=== PATIENT | female | born 1975 | race Asian ===

== ENCOUNTER 2021-05-14 19:45 | Inpatient (IN) ==
[2021-05-14] MEDS ORDERED: SODIUM CHLORIDE 0.9% 1000ML 1,000 ML IV STA (20:11)
--- NOTE | 2021-05-14 20:14 | Emergency Department Note ---
Impression & Plan Abdominal pain, left lower quadrant, Adnexal mass ED Provider Note NAME: ASHA SCHMITZ AGE: 46 SEX: F : 1975 ARRIVES VIA: Walk-In INFORMANT: Patient, ED PROVIDER(S): Srini Coyne DO CHIEF COMPLAINT: Abdominal pain HPI: The patient is a 46-year-old female who presented to the emergency department for an evaluation of lower abdominal pain. The patient started having abdominal pain on the left lower quadrant yesterday. The pain continued into today. The patient was seen at [facility] and was sent to the emergency department for further evaluation. The patient states the pain has been constant. She states the pain is mildly improved compared to its onset. The patient states the pain is worsened with ambulation as well as palpation over the lower abdomen. The patient denies having hematuria. She denies having any dysuria or frequency. The patient has never had a colonoscopy and never had a history of diverticulitis. She does not have a history of kidney stone. She denies having any chest pain or difficulty breathing. She states the pain is moderate at this time but does not want any pain medication. ROS: See above HPI for pertinent positives & negatives. A total of 10 systems reviewed and were otherwise negative. PAST MEDICAL HISTORY: See Below PAST SURGICAL HISTORY: See Below FAMILY HISTORY: See Below SOCIAL HISTORY: See Below HOME MEDICATIONS: See Below ALLERGIES: See Below VITALS: See Below PHYSICAL EXAMINATION: GENERAL: The patient is awake and alert. The patient is somewhat anxious appearing. EYES: The conjunctivae are clear. The pupils are round and reactive. EARS, NOSE, MOUTH AND THROAT: The nose is without any evidence of any deformity. NECK: The neck is nontender and supple. RESPIRATORY: Normal respiratory effort is noted there is no evidence of wheezing rhonchi or rales CARDIOVASCULAR: Regular rate and rhythm noted there no murmurs rubs or gallops normal S1 normal S2. GASTROINTESTINAL: Abdomen is mildly distended. There is left lower quadrant tenderness to palpation which is moderate. BACK: No midline tenderness or or step-off noted range of motion in flexion extension as well as rotation no signs of muscle spasm noted MUSCULOSKELETAL/EXTREMITIES: There is no evidence of gross deformity full range of motion is noted in the hips and shoulders. SKIN: There is no obvious evidence of any rash. There are no petechiae, pallor or cyanosis noted. NEUROLOGIC: Patient is awake alert and oriented x3. MEDICAL DECISION MAKING: Patient is a 46-year-old female who developed left-sided abdominal pain. She went to [facility] and was referred to the emergency department for further evaluation. I discussed the patient's laboratory and radiographic studies with her. CT the abdomen and pelvis was obtained. The patient was found to have an elevated white blood cell count. CT the abdomen and pelvis revealed a left- sided adnexal mass of unclear etiology. The radiologist recommended ultrasound for further evaluation. The patient was signed out to Dr. Giordano at change of shift. Please see his note for ultrasound report and continuation of care. Triage Nursing notes reviewed. Prior medical records reviewed Vital Signs: reviewed and remarkable for no significant abnormalities Differential diagnosis: Etiologies such as appendicitis, diverticulitis, obstruction, inflammatory bowel disease, renal colic, PUD, biliary pathology, pancreatitis, mesenteric ischemia, aortic pathology, infections, genitourinary, UTI, perforated viscus, as well as others were entertained. ER treatment provided: See below Diagnostics interpreted by me: ECG: none Cardiac Monitoring: An order was placed for continuous cardiac monitoring. The monitor shows a rate of 99 bpm with sinus rhythm. Laboratory studies: As stated above and show below. Imaging studies: See below Consultation(s): none Past Med/Surg History Medical History (Updated 05/14/21 @ 22:20 by Srini Coyne DO) Antepartum varicose veins of legs Surgical History Previous section Social History Smoking Status: Never smoker Second Hand Exposure: No; Do You Dip or Chew Tobacco: No; Hx Alcohol Use: No Hx Substance Use: No Preferred Language: Mandarin Belarusian Communication Ability: Effective [employer] Required: Yes Beliefs That Will Affect Care: None marital status: Current Living Situation: Family Other Information That Helps Us Care for You: No Feels Safe at Home: Yes Safety Concerns: Feels Safe At This Time Assistive Devices: None Allergies Allergies Allergy/AdvReac Type Severity Reaction Status Date / Time No Known Allergies Allergy Unverified 05/14/21 21:27 Home Meds Home Medications Medication Instructions Recorded Confirmed amoxicillin 200 mg dispersible 0 mg PO BID 05/14/21 05/14/21 tablet Results & Data (ED) Vital Signs Vital Signs - 24 hr 05/14/21 23:46 05/15/21 01:37 05/15/21 03:07 Pulse Rate 98 H Pulse Rate [Bilateral Finger] 101 H 103 H Pulse Rate from SpO2 Sensor 98 H Respiratory Rate 18 18 20 Blood Pressure Blood Pressure [Right Arm] 111/74 113/79 Blood Pressure Mean Blood Pressure Mean [Right Arm] 86 90 Pulse Oximetry 99 98 97 Oxygen Delivery Method Room Air 05/15/21 03:10 05/15/21 03:20 05/15/21 03:30 Pulse Rate 98 H 98 H 93 H Pulse Rate [Bilateral Finger] 100 H Pulse Rate from SpO2 Sensor 99 H 97 H 95 H Respiratory Rate 22 22 16 Blood Pressure 102/73 Blood Pressure [Right Arm] 102/73 Blood Pressure Mean 82 Blood Pressure Mean [Right Arm] 82 Pulse Oximetry 98 98 97 Oxygen Delivery Method Room Air 05/15/21 03:40 05/15/21 03:50 05/15/21 04:00 Pulse Rate 106 H 103 H 97 H Pulse Rate [Bilateral Finger] Pulse Rate from SpO2 Sensor 105 H 103 H 97 H Respiratory Rate 17 20 19 Blood Pressure 101/65 Blood Pressure [Right Arm] Blood Pressure Mean 77 Blood Pressure Mean [Right Arm] Pulse Oximetry 99 97 98 Oxygen Delivery Method 05/15/21 04:10 05/15/21 04:20 05/15/21 04:30 Pulse Rate 94 H 95 H 100 H Pulse Rate [Bilateral Finger] Pulse Rate from SpO2 Sensor 93 H 95 H 99 H Respiratory Rate 21 23 24 Blood Pressure 97/55 L Blood Pressure [Right Arm] Blood Pressure Mean 69 Blood Pressure Mean [Right Arm] Pulse Oximetry 98 97 97 Oxygen Delivery Method 05/15/21 04:40 05/15/21 04:50 05/15/21 05:00 Pulse Rate 96 H 96 H 99 H Pulse Rate [Bilateral Finger] Pulse Rate from SpO2 Sensor 96 H 96 H 101 H Respiratory Rate 22 21 24 Blood Pressure 99/59 L Blood Pressure [Right Arm] Blood Pressure Mean 72 Blood Pressure Mean [Right Arm] Pulse Oximetry 97 97 97 Oxygen Delivery Method 05/15/21 05:10 05/15/21 05:20 05/15/21 05:30 Pulse Rate 100 H 97 H 97 H Pulse Rate [Bilateral Finger] Pulse Rate from SpO2 Sensor 100 H 97 H 100 H Respiratory Rate 22 23 24 Blood Pressure 94/59 L Blood Pressure [Right Arm] Blood Pressure Mean 70 Blood Pressure Mean [Right Arm] Pulse Oximetry 97 97 97 Oxygen Delivery Method 05/15/21 05:40 05/15/21 05:41 05/15/21 05:50 Pulse Rate 97 H 91 H Pulse Rate [Bilateral Finger] 101 H Pulse Rate from SpO2 Sensor 97 H Respiratory Rate 23 18 24 Blood Pressure Blood Pressure [Right Arm] 94/59 L Blood Pressure Mean Blood Pressure Mean [Right Arm] 70 Pulse Oximetry 98 96 Oxygen Delivery Method Room Air 05/15/21 06:00 05/15/21 06:10 05/15/21 06:20 Pulse Rate 99 H 95 H 94 H Pulse Rate [Bilateral Finger] Pulse Rate from SpO2 Sensor Respiratory Rate 21 22 27 H Blood Pressure 84/54 L Blood Pressure [Right Arm] Blood Pressure Mean 64 Blood Pressure Mean [Right Arm] Pulse Oximetry Oxygen Delivery Method 05/15/21 06:30 05/15/21 06:40 05/15/21 06:50 Pulse Rate 98 H 96 H 97 H Pulse Rate [Bilateral Finger] Pulse Rate from SpO2 Sensor Respiratory Rate 23 22 24 Blood Pressure 92/54 L Blood Pressure [Right Arm] Blood Pressure Mean 66 Blood Pressure Mean [Right Arm] Pulse Oximetry Oxygen Delivery Method 05/15/21 07:00 05/15/21 07:01 05/15/21 07:10 Pulse Rate 100 H 100 H 101 H Pulse Rate [Bilateral Finger] 97 H Pulse Rate from SpO2 Sensor 101 H 101 H Respiratory Rate 27 H 22 19 Blood Pressure 76/51 L 90/58 L Blood Pressure [Right Arm] 97/58 L Blood Pressure Mean 59 68 Blood Pressure Mean [Right Arm] 71 Pulse Oximetry 97 97 98 Oxygen Delivery Method Room Air 05/15/21 07:24 05/15/21 07:30 05/15/21 07:40 Pulse Rate 105 H 96 H 95 H Pulse Rate [Bilateral Finger] Pulse Rate from SpO2 Sensor 105 H 96 H 96 H Respiratory Rate 22 28 H 26 H Blood Pressure 103/73 Blood Pressure [Right Arm] Blood Pressure Mean 83 Blood Pressure Mean [Right Arm] Pulse Oximetry 98 96 97 Oxygen Delivery Method 05/15/21 07:50 05/15/21 08:00 05/15/21 08:10 Pulse Rate 100 H 101 H 105 H Pulse Rate [Bilateral Finger] Pulse Rate from SpO2 Sensor 101 H 101 H 105 H Respiratory Rate 18 27 H 21 Blood Pressure 100/58 L Blood Pressure [Right Arm] Blood Pressure Mean 72 Blood Pressure Mean [Right Arm] Pulse Oximetry 98 97 98 Oxygen Delivery Method Home Medications Current Medication List: was personally reviewed by me Laboratory Data Attestation: I reviewed the patient's lab results. Result diagrams: 05/15/21 09:02 05/14/21 20:29 Lab Results 05/14/21 05/14/21 05/14/21 Range/Units 20:29 20:29 20:29 WBC 18.98 H (4.8-10.8) K/uL RBC 4.22 (4.2-5.4) M/uL Hgb 13.2 (12.0-16.0) g/dL Hct 38.4 (37-47) % MCV 91.0 (80-100) fL MCH 31.3 (25-34) pg MCHC 34.4 (32-36) g/dL RDW Std Deviation 41.6 (36.4-46.3) fL RDW Coeff of [place] 12.5 (11.5-14.5) % Plt Count 185 (130-400) K/uL MPV 9.6 (7.4-10.4) fL Immature Gran % (Auto) 0.5 % Neut % (Auto) 84.2 % Lymph % (Auto) 7.5 % Mccone % (Auto) 7.6 % Eos % (Auto) 0.1 % Baso % (Auto) 0.1 % Neut # (Auto) 16.01 H (1.4-6.5) K/uL Lymph # (Auto) 1.42 (1.2-3.4) K/uL Mccone # (Auto) 1.44 H (0.11-0.59) K/uL Eos # (Auto) 0.01 (0-0.5) K/uL Baso # (Auto) 0.01 (0-0.2) K/uL Immature Gran # (Auto) 0.09 H (0.00-0.02) K/uL Sodium 135 L (136-145) mmol/L Potassium 3.3 L (3.5-5.1) mmol/L Chloride 102 (98-107) mmol/L Carbon Dioxide 25 (21-32) mmol/L Anion Gap 8 (3-11) BUN 9 (6-23) mg/dl Creatinine 0.63 (0.6-1.2) mg/dl Est Cr Clr Drug Dosing 90.1 ml/min Est GFR ( Amer) 126.4 ml/min Est GFR (Non-Af Amer) 109.1 ml/min BUN/Creatinine Ratio 14.3 (10-20) Glucose 120 H (70-99(Fasting)) mg/dl Calcium 9.0 (8.5-10.1) mg/dl Total Bilirubin 1.1 H (0.2-1.0) mg/dl AST 18 (13-39) U/L ALT 20 (7-52) U/L Alkaline Phosphatase 70 (34-104) U/L Total Protein 7.5 (6.0-8.3) gm/dl Albumin 4.1 (3.4-5.0) gm/dl Globulin 3.4 (2.5-4.0) gm/dl Albumin/Globulin Ratio 1.2 (0.9-2) Lipase 12 (11-82) U/L HCG, Qual Negative (Negative) Urine Color Urine Appearance (Clear) Urine pH (4.5-7.5) Ur Specific [place] (1.000-1.030) Urine Protein (Negative) Urine Glucose (UA) (Negative) Urine Ketones (Negative) Urine Blood (Negative) Urine Nitrite (Negative) Urine Bilirubin (Negative) Urine Urobilinogen (Negative) Ur Leukocyte Esterase (Negative) Urine WBC (Auto) (0-5) /hpf Urine RBC (Auto) (0-4) /hpf U Hyaline Cast (Auto) (0-5) /lpf U Epithel Cells (Auto) (0-5) /lpf Urine Bacteria (Auto) (Negative) 05/14/21 Range/Units 20:29 WBC (4.8-10.8) K/uL RBC (4.2-5.4) M/uL Hgb (12.0-16.0) g/dL Hct (37-47) % MCV (80-100) fL MCH (25-34) pg MCHC (32-36) g/dL RDW Std Deviation (36.4-46.3) fL RDW Coeff of [place] (11.5-14.5) % Plt Count (130-400) K/uL MPV (7.4-10.4) fL Immature Gran % (Auto) % Neut % (Auto) % Lymph % (Auto) % Mccone % (Auto) % Eos % (Auto) % Baso % (Auto) % Neut # (Auto) (1.4-6.5) K/uL Lymph # (Auto) (1.2-3.4) K/uL Mccone # (Auto) (0.11-0.59) K/uL Eos # (Auto) (0-0.5) K/uL Baso # (Auto) (0-0.2) K/uL Immature Gran # (Auto) (0.00-0.02) K/uL Sodium (136-145) mmol/L Potassium (3.5-5.1) mmol/L Chloride (98-107) mmol/L Carbon Dioxide (21-32) mmol/L Anion Gap (3-11) BUN (6-23) mg/dl Creatinine (0.6-1.2) mg/dl Est Cr Clr Drug Dosing ml/min Est GFR ( Amer) ml/min Est GFR (Non-Af Amer) ml/min BUN/Creatinine Ratio (10-20) Glucose (70-99(Fasting)) mg/dl Calcium (8.5-10.1) mg/dl Total Bilirubin (0.2-1.0) mg/dl AST (13-39) U/L ALT (7-52) U/L Alkaline Phosphatase (34-104) U/L Total Protein (6.0-8.3) gm/dl Albumin (3.4-5.0) gm/dl Globulin (2.5-4.0) gm/dl Albumin/Globulin Ratio (0.9-2) Lipase (11-82) U/L HCG, Qual (Negative) Urine Color Yellow Urine Appearance Clear (Clear) Urine pH 6.5 (4.5-7.5) Ur Specific [place] 1.007 (1.000-1.030) Urine Protein Negative (Negative) Urine Glucose (UA) Negative (Negative) Urine Ketones 1+ H (Negative) Urine Blood 1+ H (Negative) Urine Nitrite Negative (Negative) Urine Bilirubin Negative (Negative) Urine Urobilinogen Negative (Negative) Ur Leukocyte Esterase Trace H (Negative) Urine WBC (Auto) 1-5 (0-5) /hpf Urine RBC (Auto) 0-4 (0-4) /hpf U Hyaline Cast (Auto) 0 (0-5) /lpf U Epithel Cells (Auto) 5-10 H (0-5) /lpf Urine Bacteria (Auto) Negative (Negative) Administered Medications Piperacillin Sod/Tazobactam (Sod 3.375 gm/ Dextrose) 115 mls @ 28.75 mls/hr IV Q8H JOSE; Protocol Stop: 05/25/21 13:59 Last Admin: 05/15/21 21:58 Dose: 28.8 mls/hr Documented by: [id number] Infusion: 05/15/21 18:13 Dose: 0 mls/hr Documented by: [id number] Admin: 05/15/21 14:13 Dose: 28.8 mls/hr Documented by: [id number] Discontinued Medications Gadobutrol (Gadobutrol 65ml Vial) 6 ml IV ONCE ONE Stop: 05/15/21 02:24 Last Admin: 05/15/21 02:23 Dose: 6 ml Documented by: [id number] Sodium Chloride (Nss 1000ml) 1,000 mls @ 999 mls/hr IV .Q1H1M STA Stop: 05/14/21 21:11 Last Infusion: 05/14/21 21:50 Dose: 0 mls/hr Documented by: [id number] Admin: 05/14/21 20:53 Dose: 999 mls/hr Documented by: [id number] Piperacillin Sod/Tazobactam Sod (Zosyn) 4.5 gm in 120 mls @ 240 mls/hr IV NOW ONE Stop: 05/14/21 22:47 Last Infusion: 05/14/21 23:47 Dose: 0 mls/hr Documented by: [id number] Admin: 05/14/21 22:28 Dose: 240 mls/hr Documented by: [id number] Piperacillin Sod/Tazobactam (Sod 3.375 gm/ Dextrose) 115 mls @ 230 mls/hr IV NOW ONE; Protocol Stop: 05/15/21 09:14 Last Infusion: 05/15/21 09:48 Dose: 0 mls/hr Documented by: [id number] Admin: 05/15/21 09:15 Dose: 230 mls/hr Documented by: [id number] Imaging Data Radiologist's Impression: Patient: ASHA SCHMITZ (Female) : 79 Status: ER Date: 05/14/21 21:41 Room #: History: left side ad pain appen pres Slices: [id number] Priors: Tech: Randy Agee @ [phone] Exams: CT ABDOMEN & PELVIS Without Contrast Contrast: Accession Numbers: [id number] Referring Physician: REFERRED SELF Preliminary Findings Only See Final Report For Complete Findings CT ABDOMEN & PELVIS Without Contrast: Left adnexal mass or enlarged left ovary. Consider pelvic ultrasound for further evaluation. No radiopaque kidney stone or hydronephrosis. No small bowel obstruction. No free fluid or free air. Normal appendix. No evidence of diverticulosis or diverticulitis. Nonspecific fluid within the endometrial cavity or endometrial thickening. Scarring along the anterior abdominal wall and anterior margin of the uterine fundus. Radiologist: Nikhil Macedo MD Study ready at 21:52 and initial results transmitted at 22:05 Discharge Plan Visit Data Chief Complaint: Abdominal Pain Stated Complaint: LLQ ABDOMINAL PAIN ED Provider: Ten Meyer Discharge Problem: Abdominal pain, left lower quadrant, Adnexal mass Patient Disposition: Admitted As Inpatient Discharge Instructions Interventions: ED Discharge Assessment Last Done: 05/15/21 12:56
[2021-05-14 20:38] LABS: Basophils # (auto) 0.01 K/uL (0-0.2); Basophils % (auto) 0.1 %; Eosinophils # (auto) 0.01 K/uL (0-0.5); Eosinophils % (auto) 0.1 %; Hematocrit (blood only) 38.4 % (37-47); Hemoglobin 13.2 g/dL (12.0-16.0); Immature Granulocytes # (auto) 0.09 K/uL (0.00-0.02); Immature Granulocytes % (auto) 0.5 %; Lymphocytes # (auto) 1.42 K/uL (1.2-3.4); Lymphocytes % (auto) 7.5 %; Mean Corpuscular Hemoglobin 31.3 pg (25-34); Mean Corpuscular Hgb Conc 34.4 g/dL (32-36); Mean Platelet Volume 9.6 fL (7.4-10.4); Monocytes # (auto) 1.44 K/uL (0.11-0.59); Monocytes % (auto) 7.6 %; Neutrophils # (auto) 16.01 K/uL (1.4-6.5); Neutrophils % (auto) 84.2 %; Platelet Count 185 K/uL (130-400); RDW Coefficient of Variation 12.5 % (11.5-14.5); RDW Standard Deviation 41.6 fL (36.4-46.3); Red Blood Count 4.22 M/uL (4.2-5.4); White Blood Count 18.98 K/uL (4.8-10.8)
[2021-05-14 20:55] LABS: Albumin Globulin Ratio 1.2 (0.9-2); Albumin Level 4.1 gm/dl (3.4-5.0); BUN Creatinine Ratio 14.3 (10-20); Bilirubin,Total 1.1 mg/dl (0.2-1.0); Creatinine Clr Calc Pharmacy 90.1 ml/min; Est GFR (African American) 126.4 ml/min; Est GFR (Non-African American) 109.1 ml/min; Globulin 3.4 gm/dl (2.5-4.0); Potassium 3.3 mmol/L (3.5-5.1); Total Protein 7.5 gm/dl (6.0-8.3)
[2021-05-14 21:11] LABS: Appearance Urine Clear (Clear); Bacteria Urine Automated Negative (Negative); Bilirubin Urine Negative (Negative); Blood Urine 1+ (Negative); Cast Urine Automated 0 /lpf (0-5); Color Urine Yellow; Glucose Urine UA Negative (Negative); Ketones Urine 1+ (Negative); Leukocyte Esterase Urine Trace (Negative); Nitrite Urine Negative (Negative); Protein Urine Negative (Negative); RBC Urine Automated 0-4 /hpf (0-4); Specific Gravity Urine 1.007 (1.000-1.030); Urobilinogen Urine Negative (Negative); pH Urine 6.5 (4.5-7.5)
[2021-05-14 21:25] LABS: Pregnancy Test, Serum Negative (Negative)
[2021-05-14] MEDS ORDERED: PIPERACILL/TAZOBAC CONSULT ACTIVE PRN (22:18)
[2021-05-14] MEDS ORDERED: PIPERACILLIN/TAZOBACTAM 4.5 GM/120 ML BAG IV ONE (22:18)
--- NOTE | 2021-05-15 00:58 | Emergency Department Note ---
ED Visit Note This case was signed out to me at change of shift awaiting MRI of the pelvis. MRA PELVIS : Tubular 5.0 x 3.8 x 3 x 2 cm fluid-filled structure consistent with dilated tortuous tightly wound fallopian tubes as seen with hydrosalpinx. The presence of enhancement and layering debris could represent pyosalpinx and the appropriate clinical context. 2.4 cm enhancing lesion in the left sacral body with associated T2 hyperintensity and moderate T1 hypointensity. The appearance can be seen with both an atypical hemangioma as well as metastatic disease. If further imaging is needed, a nonurgent dynamic contrast-enhanced MRI of the sacrum on an outpatient basis may provide further delineation between these 2 processes. Postsurgical changes of section. No abnormal endometrial thickening. 2.0 cm follicle present in the otherwise unremarkable left ovary. The patient will be evaluated by Dr. Yang. The case will be signed out to Dr. Meyer for final disposition .
--- NOTE | 2021-05-15 00:58 | Emergency Department Note ---
ED Visit Note The patient was signed out to me awaiting an ultrasound of the pelvis for a possible adnexal mass seen on CT scan. The ultrasound also suggest an adnexal mass but of unclear origin possibly felt to be coming from the uterus. The patient had an elevated white blood cell count of 18,000. The patient was given IV Zosyn by Dr. Coyne. She was also given some IV fluids. The patient is distiller on exam in the left lower quadrant although I do not feel the patient has a surgical abdomen. An MRI of the abdomen and pelvis has been ordered for further evaluation based on the recommendation from the radiologist who read the patient's ultrasound. I did speak with Dr. Yang, the patient's surgery technician, who states that he will see the patient around 8 AM in the emergency department and based on the results of the MRI and his evaluation, he will decide on the disposition of the patient. The patient will be signed out to Dr. Massey as my shift has now ended. She is aware of the plan. .
[2021-05-15] MEDS ORDERED: GADOBUTROL 65ML VIAL IV ONE (02:23)
--- NOTE | 2021-05-15 06:43 | Magnetic Resonance Report ---
MRI OF THE PELVIS WITH AND WITHOUT CONTRAST CLINICAL HISTORY: Left adnexal / uterine mass. COMPARISON STUDY: CT of the abdomen and pelvis and pelvic ultrasound May 14, 2021. TECHNIQUE: Utilizing a 1.5 Smitha magnet and dedicated coil, multiplanar, multiecho imaging of the pel vis was performed pre and postcontrast administration. Intravenous injection of 6 cc of Gadavist was uneventful FINDINGS: A dilated left fallopian tube is noted. This corresponds to the finding on CT and ultrasoun d of May 14, 2021. The left fallopian tube is moderately dilated. Peripheral enhancement is noted o n the postcontrast images. On T2-weighted sequence, an fluid-fluid level is noted. The right fallopia n tube is not dilated. 2.2 cm dominant follicle within the left ovary is noted. There is evidence for section with susceptibility artifact. Fluid fluid level within the lower uterine segment is present. This could reflect a small amount of blood products. The right ovary is unremarkable. Note is made of a 2.4 cm enhancing lesion within the left aspect of the sacrum. This has mixed signal inte nsity on the T1-weighted sequence. This demonstrates fat saturation and favors a hemangioma. No addit ional marrow signal abnormalities are identified within the pelvis or hips. Bladder is unremarkable. There is no pelvic lymphadenopathy. There is no ascites. There is no fluid collection. IMPRESSION: 1. Dilated left fallopian tube consistent with left hydrosalpinx which accounts for the finding on CT and ultrasound of May 14, 2021. Peripheral enhancement and fluid fluid level suggestive of debris could be seen in the setting of pyosalpinx or hydrosalpinx. This could be correlated with clinical ev idence for an infectious process. 2. 2.2 cm dominant follicle within the left ovary. 3. Suspected minimal blood products within the lower uterine segment. 4. 2.4 cm enhancing left sacral lesion, as described above. Although pathologically indeterminate, a hemangioma is favored. ACT 112: Negative or not required by law. Electronically signed by: Jair Boyer M.D. 05/15/2021 6:41 AM
--- NOTE | 2021-05-15 06:52 | CT Scan Report ---
CT SCAN OF THE ABDOMEN AND PELVIS WITHOUT IV CONTRAST CLINICAL HISTORY: Left-sided abdominal pain. COMPARISON STUDY: No priors. TECHNIQUE: CT scan of the abdomen and pelvis is performed from the lung bases to the proximal femora. Images are reviewed in the axial, sagittal, and coronal planes. IV contrast was not administered for this examination. A dose lowering technique was utilized adhering to the principles of ALARA. The ex amination is degraded by motion artifact. CT DOSE: 266.38 mGy.cm FINDINGS: Lung bases: The heart is normal in size and without pericardial effusion. There is trace right pleura l effusion and dependent atelectasis. Liver: The unenhanced liver is normal in size, contour, and attenuation. There is no intrahepatic belkys iary ductal dilatation. Gallbladder: Unremarkable. Spleen: Normal in size and attenuation. Pancreas: Unremarkable. Adrenal glands: Unremarkable. Kidneys: The unenhanced kidneys are normal in size and without hydronephrosis. There are no renal seda culi identified. There is no evidence of contour deforming renal mass lesion. Abdominal vasculature: The abdominal aorta is normal in course and caliber. Bowel: There is mild to moderate colonic fecal retention. No bowel obstruction is seen. The appendix is well-visualized and normal. Peritoneum: There is no intraperitoneal free air or abdominal ascites. There is a fat-containing umbi lical hernia. A surgical scar is suggested in the ventral pelvis. Lymphadenopathy: None. Pelvic viscera: The bladder wall appears circumferentially thickened. The uterus is normal as visuali zed. There is a 4.4 x 4.0 cm heterogeneous soft tissue lesion in the left upper adnexa adjacent to th e uterine fundus. This appears to be discrete from the adjacent left ovary which is seen on image #34 3 and there are surrounding inflammation. Skeletal structures: No lytic or blastic lesions are seen. IMPRESSION: 1. There is a 4.4 x 4.0 cm heterogeneous soft tissue lesion in the left upper adnexa adjacent to the uterine fundus. There is surrounding inflammation, and this appears to be discrete from the adjacent left ovary. This is pathologically indeterminant, and present a torsed pedunculated fibroid, an adnex al process such as pyosalpinx/tubo-ovarian abscess, an abnormal left ovary, or possibly a soft tissue neoplasm. Pelvic ultrasound should be considered for further evaluation. 2. No additional infectious or inflammatory findings are seen in the abdomen or pelvis. 3. Trace right pleural effusion. ACT 112: Negative or not required by law. Electronically signed by: Mando Florez M.D. 05/15/2021 6:49 AM
--- NOTE | 2021-05-15 07:21 | Ultrasound Report ---
PELVIC ULTRASOUND CLINICAL HISTORY: Left adnexal mass, COMPARISON STUDY: CT of the abdomen and pelvis performed earlier today. TECHNIQUE: Transabdominal and transvaginal sonography of the pelvis was performed. FINDINGS: Uterus measures 9.2 x 3.5 x 4.5 cm. Endometrium measures 6 mm in thickness. There are possi ble blood products within the lower uterine segment. Right ovary is sonographically normal, measuring 2.6 x 1.7 x 1.3 cm. The left ovary measures 3.6 x 1.9 x 2.7 cm and contains a dominant follicle. The re is color flow within each ovary. Note is made of a complex tubular hypoechoic masslike abnormality within the left adnexa which measures 4.6 x 3.6 x 4 cm. This appears to be separate from the uterus. IMPRESSION: 1. Complex left adnexal mass measuring approximately 4.6 x 4 x 3.6 cm. This may reflect a dilated lef t fallopian tube and favors a hydrosalpinx or potentially a pyosalpinx in the correct clinical settin g. Follow-up MRI of the pelvis is recommended. 2. Dominant follicle within the left ovary. ACT 112: Negative or not required by law. Electronically signed by: Jair Boyer M.D. 05/15/2021 7:19 AM
[2021-05-15] MEDS ORDERED: PIPERACILL/TAZOBAC CONSULT ACTIVE PRN ×2 (08:36→08:40)
[2021-05-15] MEDS ORDERED: PIPERACILLIN/TAZOBACTAM 3.375 GM in DEXTROSE 5% 100 ML/100 ML BAG IV STA (08:40)
[2021-05-15] MEDS ORDERED: PIPERACILLIN/TAZOBACTAM 3.375 GM in DEXTROSE 5% 100 ML IV ONE (08:45)
--- NOTE | 2021-05-15 08:45 | Emergency Department Note ---
ED Visit Note The patient was taken in signout from at the change of shift. Please see that note for details. The patient was pending evaluation by Dr. Yang of RECRE[facility] COORDINATOR. He evaluated patient in the ER. He would like to admit her with concerns for an infected left fallopian tube. He did asked for the patient to get a dose of IV Zosyn and this was ordered. .
[2021-05-15 09:09] LABS: Basophils # (auto) 0.01 K/uL (0-0.2); Basophils % (auto) 0.1 %; Hematocrit (blood only) 34.6 % (37-47); Hemoglobin 11.8 g/dL (12.0-16.0); Immature Granulocytes # (auto) 0.06 K/uL (0.00-0.02); Immature Granulocytes % (auto) 0.4 %; Lymphocytes # (auto) 1.38 K/uL (1.2-3.4); Lymphocytes % (auto) 8.1 %; Mean Corpuscular Hemoglobin 31.1 pg (25-34); Mean Corpuscular Hgb Conc 34.1 g/dL (32-36); Mean Corpuscular Volume 91.3 fL (80-100); Mean Platelet Volume 9.3 fL (7.4-10.4); Monocytes % (auto) 8.3 %; Neutrophils # (auto) 14.09 K/uL (1.4-6.5); Neutrophils % (auto) 83.1 %; Platelet Count 171 K/uL (130-400); RDW Coefficient of Variation 12.6 % (11.5-14.5); RDW Standard Deviation 42.3 fL (36.4-46.3); Red Blood Count 3.79 M/uL (4.2-5.4); White Blood Count 16.94 K/uL (4.8-10.8)
--- NOTE | 2021-05-15 11:24 | History and Physical Report ---
DATE OF ADMISSION: 05/15/2021. CHIEF COMPLAINT: Left-sided pain for 3 days. HISTORY OF PRESENT ILLNESS: The patient is a 47-year-old 3, para 2, 1 spontaneous AB. Good general health. No chronic pills or medications. No known drug allergies: No form of control. Periods are coming every 28-30 days. Last menstrual period was on time, normal lasted from 022-05/09/2021. She began to notice left adnexal discomfort about 5:00 p.m. on Sunday noted on the l eft side, it got gradually worse. At one point she was unable to stand up due to the pain. It was no t associated with any nausea, vomiting, or loss of appetite and she came to the emergency room where she was worked up with a CT, ultrasound, MRI and given antibiotics. PAST MEDICAL HISTORY: She has 2 children, a boy and a girl in good health. ALLERGIES: No known drug allergies. PAST SURGICAL HISTORY: She has had 2 C-sections. Her last child was born premature at about 4 pound s 11 ounces. MEDICAL HISTORY: She has a problem with elevated cholesterol. SOCIAL HISTORY: No smoking, no excessive alcohol intake. She is employed. FAMILY HISTORY: Mom is 66, high blood pressure. Father 68, high blood pressure. Two sisters, one b rother. One sister has elevated blood pressure. REVIEW OF SYSTEMS: HEAD: No symptoms of frequent or severe headaches. EYES: No symptoms of blurred vision or double vision. EARS: No symptoms of frequent ear infection or difficulty hearing. NOSE: No symptoms of frequent nosebleeds or difficulty breathing through her nose. THROAT: No symptoms of frequent or severe sore throats, difficulty swallowing. RESPIRATORY SYSTEM: No history of asthma, chest pain, shortness of breath. PHYSICAL EXAMINATION: GENERAL: Well-developed, well-nourished 47-year-old [place] female, alert, oriented x3, and cooperat jordon, in no obvious distress. HEART: Had regular rhythm. S1 and S2 are normal. LUNGS: Clear to auscultation and percussion. There was no CVA tenderness. There was no calf tender ness. ABDOMEN: Revealed normal bowel sounds. There was no rebound. There was some tenderness to deep pal pation in left adnexa. PELVIC: Speculum exam revealed a normal-appearing cervix. Uterus was normal size, anteverted. No p ain on motion of the cervix. There was some mild left sided adnexal pain. IMPRESSIONS OF THIS CASE: Status post 2 previous sections, elevated cholesterol, infected l eft fallopian tube. Job ID: [id number]
[2021-05-15] MEDS: PIPERACILLIN/TAZOBACTAM 3.375 GM in DEXTROSE 5% 100 ML IV SCH ×2 (14:13→21:58)
[2021-05-16] MEDS: PIPERACILLIN/TAZOBACTAM 3.375 GM in DEXTROSE 5% 100 ML IV SCH ×2 (06:02→13:38)
--- NOTE | 2021-05-16 11:26 | Obstetrical Progress Note ---
Date of Service May 16, 2021 Assessment & Plan Admission and Anticipated Discharge Date Admission Date: May 15, 2021 Subjective afebrile ambulating well pelvic pain has decreased will repeat cbc with diff Results & Data ([facility]) Vital Signs (Past 12 Hours) Vital Signs Temp Pulse Pulse Resp BP Pulse Ox 05/16/21 08:00 37.3 C 86 18 104/68 97 05/16/21 02:58 37.1 C 85 16 99/69 L 96 05/15/21 23:38 37.4 C 94 H 16 98/69 L 98
[2021-05-16 11:44] LABS: Basophils # (auto) 0.01 K/uL (0-0.2); Basophils % (auto) 0.1 %; Eosinophils # (auto) 0.03 K/uL (0-0.5); Eosinophils % (auto) 0.3 %; Hematocrit (blood only) 35.6 % (37-47); Hemoglobin 12.6 g/dL (12.0-16.0); Immature Granulocytes # (auto) 0.02 K/uL (0.00-0.02); Immature Granulocytes % (auto) 0.2 %; Lymphocytes # (auto) 1.74 K/uL (1.2-3.4); Lymphocytes % (auto) 18.9 %; Mean Corpuscular Hemoglobin 31.8 pg (25-34); Mean Corpuscular Hgb Conc 35.4 g/dL (32-36); Mean Corpuscular Volume 89.9 fL (80-100); Mean Platelet Volume 9.4 fL (7.4-10.4); Monocytes # (auto) 0.88 K/uL (0.11-0.59); Monocytes % (auto) 9.6 %; Neutrophils # (auto) 6.53 K/uL (1.4-6.5); Neutrophils % (auto) 70.9 %; Platelet Count 228 K/uL (130-400); RDW Coefficient of Variation 12.4 % (11.5-14.5); RDW Standard Deviation 40.7 fL (36.4-46.3); Red Blood Count 3.96 M/uL (4.2-5.4); White Blood Count 9.21 K/uL (4.8-10.8)
[2021-05-16 16:12] VITALS: BP 105/71; TEMP 99.7; O2SAT 98
--- NOTE | 2021-05-16 17:24 | Obstetrical Progress Note ---
Date of Service May 16, 2021 Assessment & Plan Admission and Anticipated Discharge Date Admission Date: May 15, 2021 Subjective afebrile ambulating well abdomen soft bowel sounds normal pelvic pain has resolved white cell count 9 thousand Results & Data ([facility]) Vital Signs (Past 12 Hours) Vital Signs Temp Pulse Resp BP Pulse Ox 05/16/21 16:00 37.6 C H 77 18 105/71 98 05/16/21 11:30 36.9 C 86 18 113/81 97 05/16/21 08:00 37.3 C 86 18 104/68 97
[2021-05-16 17:55] VITALS: PULSE 85
--- NOTE | 2021-05-17 03:36 | Discharge Summary (DS) ---
DATE OF ADMISSION: 05/15/2021 DATE OF DISCHARGE: 05/16/2021 HOSPITAL COURSE: The patient was seen in the emergency room with acute left sided abdominal pain. S he was worked up with an MRI, CAT scan and ultrasound, which revealed a hydrosalpinx, which was proba zi infected on the left side. She had a white cell count at that time of 19,000. I was called from the ER physicians to come and evaluate the patient. We admitted her. She was given an initial dose of Zosyn. I then continued the Zosyn during her hospitalization. I repeated the white cell count a bout 6 or 7 hours after the initial one and it had dropped to 16,000 and the day of discharge, it had become normal, had dropped to 9500. When she was admitted through the ER, she had acute left sided abdominal pain. At the time of discharge, her pain had resolved. She had good bowel sounds. She was ambulating well, eating well. She was given prescription for Augmentin 875 mg to take 2 tablets eliu ly for 10 days and to follow up in the office. Job ID: [id number]
== END 2021-05-16 18:38 | disposition home or self-care (01) | DRG 759 ==
LOC: ED 19:45 → 4E2 05-15 08:46